=== PATIENT | female | born 2000 | race African-American/Black ===

== ENCOUNTER 2025-04-25 18:34 | Emergency (ER) | payer MEDICAID ==
[~2025-04-25] VITALS: Ht 175.3 cm; Wt 109.0 kg
[2025-04-25 18:49] VITALS: O2SAT 99
[2025-04-25 18:50] VITALS: BP 154/91; PULSE 98; RESP 18; TEMP 36.9; O2SAT 96
== END 2025-04-25 20:08 | disposition left against medical advice (07) ==
LOC: ER 18:34
DX: J02.9 Acute pharyngitis, unspecified (principal); Z53.21 Procedure and treatment not carried out due to patient leaving prior to being seen by health care provider